=== PATIENT | male | born 1985 ===

== ENCOUNTER 2025-07-25 00:48 | Emergency (ER) | payer SELFPAY ==
[2025-07-25 02:01] LABS: BASOPHILS ABSOLUTE AUTO 0.1 K/mm3 (0.0-0.2); BASOPHILS PERCENT AUTO 0.6 % (0.0-1.0); EOSINOPHILS ABSOLUTE AUTO 0.3 K/mm3 (0.0-0.4); EOSINOPHILS PERCENT AUTO 2.0 % (0.0-6.0); IMMATURE GRAN ABSOLUTE AUTO 0.04 K/mm3 (0.00-0.05); IMMATURE GRAN PERCENT AUTO 0.3 % (0.0-0.4); LYMPHOCYTES ABSOLUTE AUTO 4.8 K/mm3 (1.0-4.8); LYMPHOCYTES PERCENT AUTO 38.9 % (24.0-44.0); MEAN PLATELET VOLUME 10.8 fl (9.4-12.4); MONOCYTES ABSOLUTE AUTO 0.8 K/mm3 (0.0-0.8); MONOCYTES PERCENT AUTO 6.7 % (0.0-8.0); NEUTROPHILS ABSOLUTE AUTO 6.4 K/mm3 (1.8-7.7); NEUTROPHILS PERCENT AUTO 51.5 % (41.0-71.0); NRBC ABSOLUTE 0.00 (0.00-0.02); NRBC PERCENT 0.0 % (0.0-0.2); PLATELET COUNT,PLT 375 K/mm3 (150-400); RED BLOOD CELL COUNT 6.00 M/mm3 (4.52-5.90); WHITE BLOOD CELL COUNT,WBC 12.38 K/mm3 (3.9-11.3)
[2025-07-25 02:37] LABS: A/G RATIO 0.9 (1-2); ALANINE AMINOTRANSFERASE,ALT 63.0 U/L (16-63); ASPARTATE AMNIOTRANSFERASE,AST 27.0 U/L (15-37); BILIRUBIN TOTAL 0.4 mg/dL (0.2-1.0); BLOOD UREA NITROGEN,BUN 17.0 mg/dL (7-18); CARBON DIOXIDE,CO2 31.0 mEq/L (21-32); CHLORIDE,CL 103.0 mEq/L (98-107); CREATININE 1.2 mg/dL (0.7-1.3); EST CRCL DRUG DOSING (CG) 88.9 mL/min; ESTIMATED GFR 79.0 mL/min (>60); GLUCOSE RANDOM 112.0 mg/dL (70-99); PROTEIN TOTAL,TP 8.9 g/dl (6.4-8.2); SODIUM,NA 145.0 mEq/L (136-145); TSH 2.35 uIU/mL (0.358-3.74)
[2025-07-25 02:43] LABS: POTASSIUM,K 3.6 mEq/L (3.5-5.1)
== END 2025-07-25 03:00 | disposition home or self-care (01) ==
LOC: JD.ED 00:48
DX: F41.9 Anxiety disorder, unspecified (principal); R51.9 Headache, unspecified; Z79.82 Long term (current) use of aspirin
CPT/HCPCS: 36415; 80053; 83735; 84443; 85025; 93005; 93010; 99283; 99284